=== PATIENT | male | born 1960 | race Caucasian/White ===

== ENCOUNTER 2016-12-20 11:01 | Emergency (ER) | payer OTHER ==
[2016-12-20 11:12] VITALS: BP 149/72; TEMP 98; O2SAT 98
[2016-12-20] MEDS ORDERED: POVIDONE IODINE 10 % 15 ML UD TOP ONE (11:22)
[2016-12-20] MEDS ORDERED: LIDOCAINE 1% 10 ML VIAL INJ ONE (11:22)
[2016-12-20] MEDS ORDERED: TETANUS,DIPHTHERIA,PERTUSSIS 1 EA SYG IM ONE (11:23)
[2016-12-20] MEDS ORDERED: NEOMYCIN-BACITRACIN-POLYMYXIN 0.9 GM UD TOP ONE ×2 (12:08→12:16)
--- NOTE | 2016-12-20 12:17 | ED.PDOC ---
History of Present Illness - General Chief Complaint: Upper Extremity Injury Stated Complaint: hand injury Time Seen by Provider: 12/20/16 11:34 Source: patient Exam Limitations: no limitations - History of Present Illness Initial Comments: the patient is a 56-year-old male presenting to the emergency room after having had an accident with a chili pepper grinder at work immediately prior to arrival. estimated blood loss less than 10 cc. The patient sustained a 1 inch laceration over the proximal interphalangeal joint of the left thumb. The laceration is somewhat of a denuding laceration. he does have some mild decreased sensation distally. Range of motion is preserved. No other lacerations are noted. He does have a couple small blood blisters along the track of the chili pepper grinder. No other injuries. He is not up-to-date on his tetanus. Occurred: just prior to arrival Pain - Upper Extremity: moderate: Hand, left Method of Injury: incised Improving Factors: nothing Worsening Factors: nothing Allergies/Adverse Reactions: Allergies NO KNOWN ALLERGY Allergy (Verified 12/20/16 11:07) Review of Systems - Review of Systems Constitutional: States: no symptoms reported EENTM: States: no symptoms reported Respiratory: States: no symptoms reported Cardiology: States: no symptoms reported Gastrointestinal/Abdominal: States: no symptoms reported Genitourinary: States: no symptoms reported Musculoskeletal: States: see HPI Skin: States: see HPI Neurological: States: no symptoms reported Endocrine: States: no symptoms reported All other Systems: No Change from Baseline Past Medical History (General) - Patient Medical History Hx Seizures: No Hx Stroke: No Hx Dementia: No Hx Asthma: No Hx of COPD: No Hx Cardiac Disorders: No Hx Congestive Heart Failure: No Hx Pacemaker: No Hx Hypertension: Yes Hx Thyroid Disease: No Hx Diabetes: No Hx Gastroesophageal Reflux: No Hx Renal Disease: No Hx Cancer: No Hx of HIV: No Hx Hepatitis C: No Hx MRSA: No Surgical History: appendectomy - Vaccination History Hx Tetanus, Diphtheria Vaccination: No Hx Influenza Vaccination: No Hx Pneumococcal Vaccination: No Immunizations Up to Date: No - Social History Hx Tobacco Use: Yes Hx Alcohol Use: No Hx Substance Use: No Hx Substance Use Treatment: No Hx Depression: No - Female History Patient is a Female of Child Bearing Age (10 -59 yrs old): No Family Medical History - Family History Mother Family History: No Known Physical Exam - Physical Exam General Appearance: Alert, Comfortable, No apparent distress Eyes, Ears, Nose, Throat Exam: PERRL/EOMI, normal ENT inspection Neck: full range of motion, supple Cardiovascular/Respiratory: normal peripheral pulses, no respiratory distress Back Exam: normal inspection Shoulder Exam: normal inspection, non-tender, no evidence of injury, normal ROM Elbow/Forearm Exam: normal inspection, non-tender, no evidence of injury, normal ROM Wrist Exam: normal inspection, non-tender, no evidence of injury, normal ROM Hand Exam: laceration - ee history of present illness Neuro/Tendon: normal motor functions, normal tendon functions, responds to pain Mental Status: alert, oriented x 3 Skin Exam: normal color - with the exception of the laceration as described above Comments: Vital Signs - 24 hr 12/20/16 11:08 Temperature 98.0 F Pulse Rate [ 76 right arm] Respiratory 18 Rate Blood Pressure 149/72 [Right Arm] O2 Sat by Pulse 98 Oximetry Progress - Progress Progress: 12/20/16 12:21 the patient is presenting with a 1 inch laceration over the palmar aspect of his proximal interphalangeal joint of the left thumb. Wound is cleaned with saline and Betadine. After risks and benefits of repair were explained, the patient agrees to proceed. 1% Xylocaine without epinephrine was used 2 cc. 4 simple sutures of 4-0 Ethilon were used for reapproximation. Dressing was applied. He needs to apply Band-Aid and Neosporin daily to this. He needs to keep it dry for 24 hours. Sutures need to come out in 7-10 days. ER warnings were given for any worsening. He was given 1 dose of Bactrim here as well as a tetanus booster. Departure - Departure Clinical Impression: Laceration of hand Qualifiers: Encounter type: initial encounter Laterality: left Qualifier Code: (S61.412A) Laceration without foreign body of left hand, initial encounter Disposition: Discharge to Home or Self Care Condition: Fair Departure Forms: ED Discharge - Pt. Copy, Patient Portal Self Enrollment Instructions: DI for Laceration Repair -- Simple Diet: regular diet Activity: increase activity as tolerated Additional Instructions: the patient is presenting with a 1 inch laceration over the palmar aspect of his proximal interphalangeal joint of the left thumb. Wound is cleaned with saline and Betadine. After risks and benefits of repair were explained, the patient agrees to proceed. 1% Xylocaine without epinephrine was used 2 cc. 4 simple sutures of 4-0 Ethilon were used for reapproximation. Dressing was applied. He needs to apply Band-Aid and Neosporin daily to this. He needs to keep it dry for 24 hours. Sutures need to come out in 7-10 days. ER warnings were given for any worsening. He was given 1 dose of Bactrim here as well as a tetanus booster.
[2016-12-20] MEDS ORDERED: SULFA/TRIMETH 800/160 (DS) TAB 1 EA TAB PO ONE (12:23)
--- NOTE | 2016-12-20 12:23 | RAD ---
EXAM DESCRIPTION: XR HAND 3 OR MORE VIEWS CLINICAL HISTORY: rule out foreign body trauma, soft tissue injury at anterior aspect of hand, pain COMPARISON: None available FINDINGS: Three views of the left hand show no acute fracture or malalignment. There are moderate polyarticular degenerative changes including subcortical cyst formation and joint space narrowing. There are 1 or 2 punctate radiopaque foreign bodies in the soft tissues along the anterior aspect of the left hand, questionable acuity. IMPRESSION: One or 2 punctate foreign bodies in the soft tissues at the anterior aspect the left hand, but no underlying fracture or dislocation. Moderate polyarticular degenerative changes. Electronically signed by: Shon Alvarez DO 12/20/2016 12:21
== END 2016-12-20 12:51 | disposition home or self-care (01) ==
LOC: ER 11:01
DX: S61.412A Laceration without foreign body of left hand, initial encounter (principal); I10 Essential (primary) hypertension; Z23 Encounter for immunization; Z87.891 Personal history of nicotine dependence; W31.82XA Contact with other commercial machinery, initial encounter; Y99.0 Civilian activity done for income or pay
CPT/HCPCS: 73130; 90715; G0479

== ENCOUNTER 2018-04-18 15:35 | Emergency (ER) | payer SELFPAY ==
[2018-04-18 15:45] VITALS: TEMP 98.4
[2018-04-18] MEDS ORDERED: LIDOCAINE 1% 10 ML VIAL INJ ONE (15:45)
[2018-04-18] MEDS ORDERED: CHLORHEXIDINE GLUCONATE 4 % 15 ML UD TOP ONE (15:45)
--- NOTE | 2018-04-18 16:05 | ED.PDOC ---
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 HE STATES THAT THE WRENCH SLIPPED AND HIS HAND FLEW BACK HITTING ANOTHER PART OF THE CAR. PT REPORTS LACERATION TO THE DORSUM OF THE LEFT HAND. Timing/Duration: just prior to arrival Severity: moderate Location: hands Improving Factors: immobilization Worsening Factors: movement Allergies/Adverse Reactions: Allergies NO KNOWN ALLERGY Allergy (Verified 12/20/16 11:07) Home Medications: Ambulatory Orders NK [NK] 04/18/18 Review of Systems - Review of Systems Constitutional: Denies: chills, fever Respiratory: Denies: cough, short of breath Cardiology: Denies: chest pain, palpitations Musculoskeletal: Denies: joint pain, joint swelling Skin: States: lesions. Denies: change in color Past Medical History (General) - Patient Medical History Hx Seizures: No Hx Stroke: No Hx Dementia: No Hx Asthma: No Hx of COPD: No Hx Cardiac Disorders: No Hx Congestive Heart Failure: No Hx Pacemaker: No Hx Hypertension: Yes Hx Thyroid Disease: No Hx Diabetes: No Hx Gastroesophageal Reflux: No Hx Renal Disease: No Hx Cancer: No Hx of HIV: No Hx Hepatitis C: No Hx MRSA: No Surgical History: appendectomy - Vaccination History Hx Tetanus, Diphtheria Vaccination: Yes - last year Hx Influenza Vaccination: No Hx Pneumococcal Vaccination: No - Social History Hx Tobacco Use: Yes Hx Alcohol Use: No Hx Substance Use: No Hx Substance Use Treatment: No Hx Depression: No Family Medical History - Family History Mother Family History: No Known Physical Exam - Physical Exam General Appearance: Alert, Comfortable, No apparent distress, Well Developed, Well Hydrated Eyes, Ears, Nose, Throat Exam: normal ENT inspection Neck: normal inspection Respiratory: no respiratory distress Extremity: normal range of motion Neurologic: alert, normal mood/affect, oriented x 3 Skin Exam: warm/dry, normal color Skin Problem Location: upper extremities Skin Character: lesion, linear - LACERATION TO THE DORSUM OF HAND ALEX THE 3RD METACARPAL BONE. Progress - EKG/XRAY/CT XRAY: hand - ARTHRITIC CHANGES, PER RAD Procedures - Laceration/Wound Repair Left Dorsal Hand Wound Length (cm): 2.5 Wound's Depth, Shape: superficial, linear Wound Explored: no foreign body removed Irrigated w/ Saline (cc's): 250 Betadine Prep?: Yes Anesthesia: 1% Lidocaine Volume Anesthetic (cc's): 5 Wound Repaired With: sutures Suture Size/Type: 4:0, prolene Number of Sutures: 6 Layer Closure?: No Sterile Dressing Applied?: Yes Splint Applied?: No Departure - Departure Clinical Impression: Laceration of hand Time of Disposition: 16:42 Disposition: Discharge to Home or Self Care Condition: Good Departure Forms: ED Discharge - Pt. Copy, Patient Portal Self Enrollment Instructions: DI for Laceration Repair -- Simple Home Medications: Ambulatory Orders NK [NK] 04/18/18 Additional Instructions: RETURN TO ED IN 7-10 DAYS FOR SUTURE REMOVAL. RETURN SOONER FOR SIGNS OF INFECTION.
--- NOTE | 2018-04-18 16:22 | RAD ---
EXAM DESCRIPTION: Hand,Left 3 Views CLINICAL HISTORY: laceration COMPARISON: 12/20/2016 FINDINGS: 3 view(s) submitted. There is extensive osteopenia and there are arthritic changes. Increased subluxation is seen at the first MCP joint with periarticular erosions and sclerosis. There are periarticular erosions also seen at the second and third and fifth MCP joints and at the distal radius and ulnar articular surfaces. Findings have progressed. There is no definite acute fracture or dislocation. IMPRESSION: Progressive arthritic changes.. Electronically signed by: Natanael Gomez 04/18/2018 4:21 PM CDT
[2018-04-18] MEDS ORDERED: NEOMYCIN-BACITRACIN-POLYMYXIN 0.9 GM UD TOP ONE (16:36)
[2018-04-18 16:48] VITALS: BP 137/73; O2SAT 97
== END 2018-04-18 16:47 | disposition home or self-care (01) ==
LOC: ER 15:35
DX: S61.412A Laceration without foreign body of left hand, initial encounter (principal); I10 Essential (primary) hypertension; Z87.891 Personal history of nicotine dependence; W22.09XA Striking against other stationary object, initial encounter; Y92.9 Unspecified place or not applicable

== ENCOUNTER 2018-04-26 08:02 | Emergency (ER) | payer SELFPAY ==
[2018-04-26] MEDS ORDERED: ADENOSINE INJ 6 MG/2 ML SYG IV ONE ×3 (08:15→08:37)
--- NOTE | 2018-04-26 09:22 | RAD ---
EXAM DESCRIPTION: Chest,1 View CLINICAL HISTORY: CHEST PAIN COMPARISON: None. TECHNIQUE: AP portable taken at 857 hours, upright position. FINDINGS: Prominent interstitial markings bilaterally. No consolidation pleural effusion or pneumothorax. Cardiopulmonary vascular structures and mediastinal silhouette are negative. Monitoring leads on the chest. IMPRESSION: Minimally prominent interstitial markings bilaterally. Is there history of bronchitis or pneumonitis, smoking, or COPD? Bacterial pneumonia unlikely. Electronically signed by: Natanael Moore MD 04/26/2018 9:21 AM CDT
--- NOTE | 2018-04-26 09:54 | ED.PDOC ---
History of Present Illness - General Chief Complaint: Chest Pain/CO Time Seen by Provider: 04/26/18 08:31 Source: patient Exam Limitations: no limitations Additional Information: PT GOT OUT OF BED THIS AM AND FELT SOME CHEST DISCOMFORT, PALPITATIONS, SOB, AND LIGHTHEADED. COMES TO ER FOR EVALUATION. - History of Present Illness Timing/Duration: 1-3 hours Severity: moderate Location: substernal Activities at Onset: none Improving Factors: nothing Worsening Factors: nothing Associated Symptoms: chest pain, shortness of breath Allergies/Adverse Reactions: Allergies NO KNOWN ALLERGY Allergy (Verified 04/26/18 08:11) Home Medications: Ambulatory Orders Doxycycline (Monohydrate) [Doxycycline Monohydrate] 100 mg PO BID #20 cap Review of Systems - Review of Systems Constitutional: Denies: chills, fever EENTM: States: no symptoms reported Respiratory: States: short of breath. Denies: cough Cardiology: States: chest pain, palpitations. Denies: syncope Gastrointestinal/Abdominal: Denies: abdominal pain, nausea, vomiting Genitourinary: States: no symptoms reported Musculoskeletal: States: no symptoms reported Skin: States: no symptoms reported Neurological: States: no symptoms reported Endocrine: Denies: excessive sweating, flushing, intolerance to cold Hematologic/Lymphatic: States: no symptoms reported Past Medical History (General) - Patient Medical History Hx Seizures: No Hx Stroke: No Hx Dementia: No Hx Asthma: No Hx of COPD: No Hx Cardiac Disorders: No Hx Congestive Heart Failure: No Hx Pacemaker: No Hx Hypertension: Yes Hx Thyroid Disease: No Hx Diabetes: No Hx Gastroesophageal Reflux: No Hx Renal Disease: No Hx Cancer: No Hx of HIV: No Hx Hepatitis C: No Hx MRSA: No Surgical History: appendectomy - Vaccination History Hx Tetanus, Diphtheria Vaccination: Yes - last year Hx Influenza Vaccination: No Hx Pneumococcal Vaccination: No - Social History Hx Tobacco Use: Yes Hx Alcohol Use: No Hx Substance Use: No Hx Substance Use Treatment: No Hx Depression: No Family Medical History - Family History Mother Family History: No Known Physical Exam - Physical Exam General Appearance: Alert, No apparent distress Eyes, Ears, Nose, Throat Exam: PERRL/EOMI, normal ENT inspection Neck: non-tender, full range of motion, supple Respiratory: lungs clear, normal breath sounds, no respiratory distress Cardiovascular/Chest: no murmur, tachycardia Peripheral Pulses: radial,right: 2+, radial,left: 2+ Gastrointestinal/Abdominal: normal bowel sounds, non tender, soft, no organomegaly Extremity: normal range of motion, non-tender, normal inspection Neurologic: alert, normal mood/affect Skin Exam: normal color, warm/dry Lymphatic: no adenopathy Progress - Progress Progress: 04/26/18 0810 BP 88S MANUAL BUT GOOD PALPABLE RADIAL PULSES MITUL. 04/26/18 10:13 STABLE, NSR. FEELS MUCH BETTER. STATES HE'S HAD A NON PRODUCTIVE COUGH D/W [facility]. APPT MADE 05/01/18 9:[address] HERRERA. - EKG/XRAY/CT EKG: Tachy - RATE 202. NL AXIS, NON SPECIFIC T WAVE CHANGES, SVT. XRAY: chest - MILD LLL HAZINESS - Additional EKG/XRAY/Consults EKG #2: Sinus - RATE 89. NL AXIS, NL INTERVALS, , nonspecific ST T wave Chg - NAIP, RESOLUTION OF SVT Procedures - Additional Procedures Progress: ADENOSINE 6MG PUSHED BY MYSELF WITH CONVERSION OF SVT TO NSR. Departure - Departure Clinical Impression: SVT (supraventricular tachycardia) Pneumonia Qualifiers: Pneumonia type: due to unspecified organism Laterality: left Lung location: lower lobe of lung Qualified Code(s): J18.1 - Lobar pneumonia, unspecified organism Time of Disposition: 10:16 Disposition: Discharge to Home or Self Care Condition: Good Departure Forms: ED Discharge - Pt. Copy, Patient Portal Self Enrollment Instructions: Paroxysmal Supraventricular Tachycardia, Pneumonia-Adult Referrals: Carrie Herrera MD [Referring] - 05/01/18 9:10 am Prescriptions: Doxycycline (Monohydrate) [Doxycycline Monohydrate] 100 mg PO BID #20 cap Home Medications: Ambulatory Orders Doxycycline (Monohydrate) [Doxycycline Monohydrate] 100 mg PO BID #20 cap Critical Care Note - Critical Care Note Total Time (mins): 35 Comments: EVENT, ONSET OF SVT WITH HYPOTENSION FINDINGS, PULSE 202, SBP 88 SYSTEMS AT RISK, CARDIOVASCULAR INTERVENTION, ADENOSINE TO PREVENT CARDIOVASCULAR COLLAPSE. TIME 35 MINUTES.
[2018-04-26 10:53] VITALS: TEMP 97.5; O2SAT 95
[2018-04-26 10:58] VITALS: BP 117/68
== END 2018-04-26 10:45 | disposition home or self-care (01) ==
LOC: ER 08:02
DX: J18.1 Lobar pneumonia, unspecified organism (principal); I47.1 Supraventricular tachycardia; I95.9 Hypotension, unspecified; I10 Essential (primary) hypertension; Z87.891 Personal history of nicotine dependence
CPT/HCPCS: 36415; 71045; 80053; 84484; 85025; 93005; J0153

== ENCOUNTER → 2019-09-02 | Outpatient (CLI) | payer OTHER | LOC: LAB.NP 11:53 | PROVIDERS: ATTEND Nurse Practitioner Family | DX: M05.9 Rheumatoid arthritis with rheumatoid factor, unspecified (principal) ==

== ENCOUNTER → 2020-02-26 | Outpatient (CLI) | payer OTHER | LOC: LAB.O 11:39 | PROVIDERS: ATTEND Nurse Practitioner Family | DX: Z79.899 Other long term (current) drug therapy (principal) ==

== ENCOUNTER → 2020-04-29 | Outpatient (CLI) | payer OTHER | LOC: LAB.O 09:51 | PROVIDERS: ATTEND Nurse Practitioner Family | DX: M05.9 Rheumatoid arthritis with rheumatoid factor, unspecified (principal) ==